=== PATIENT | female | born 1965 | race Caucasian/White ===

== ENCOUNTER 2017-12-16 10:45 | Emergency (ER) | payer OTHER ==
[~2017-12-16] VITALS: Ht 175.3 cm; Wt 77.1 kg
[~2017-12-16 10:45] MED LIST: CLON.1 PO; DICY20 PO; FLUO10; IBUP800 PO; IRON150C PO; LISI10 PO; METO10 PO; NEURONTIN; OMEP40CA12 PO; ONDA4 PO; ONDA4ODT MM; PENVK500 PO; POTCHL10ER; PROM25 PO; TOPI25
[2017-12-16] MEDS ORDERED: Percocet 5-3251 EACH PO (14:10)
== END 2017-12-16 14:50 | disposition home or self-care (01) ==
LOC: ER 10:45
DX: S61.217A Laceration without foreign body of left little finger without damage to nail, initial encounter (principal); S16.1XXA Strain of muscle, fascia and tendon at neck level, initial encounter; S60.222A Contusion of left hand, initial encounter; S60.221A Contusion of right hand, initial encounter; Z88.8 Allergy status to other drugs, medicaments and biological substances; Z79.899 Other long term (current) drug therapy; X58.XXXA Exposure to other specified factors, initial encounter
CPT/HCPCS: 12001; 70450; 72125; 73100; 73110; 73120; 90471; 90714; 96374; 96375; 99284; J2405

== ENCOUNTER → 2018-03-19 | Outpatient (CLI) | payer OTHER ==
[~2018-03-19] MED LIST changes: +Percocet 5-3251 EACH PO
== END ==
LOC: LAB SHORT 16:30 → LAB 16:30
PROVIDERS: Nurse Practitioner Family
DX: Z12.4 Encounter for screening for malignant neoplasm of cervix (principal)
CPT/HCPCS: 87624; G0145